=== PATIENT | male | born 1960 | race Caucasian/White ===

== ENCOUNTER 2018-02-08 01:06 | Emergency (ER) | payer MEDICAID ==
[~2018-02-08] VITALS: Ht 182.9 cm; Wt 108.9 kg
[2018-02-08] MEDS ORDERED: ACETAMINOPHEN 500 MG TAB PO ONE ×2 (02:35→02:45)
[2018-02-08] MEDS ORDERED: HYDROcodone-ACET 10/325MG TAB PO ONE (05:00)
[2018-02-08 07:02] VITALS: BP 132/79
== END 2018-02-08 08:04 | disposition home or self-care (01) ==
LOC: ER 01:06 → EDBD 01:06 → ER 08:04
DX: S52.592A Other fractures of lower end of left radius, initial encounter for closed fracture (principal); S52.612A Displaced fracture of left ulna styloid process, initial encounter for closed fracture; S52.591A Other fractures of lower end of right radius, initial encounter for closed fracture; F17.210 Nicotine dependence, cigarettes, uncomplicated; F10.20 Alcohol dependence, uncomplicated; W18.30XA Fall on same level, unspecified, initial encounter; Y93.89 Activity, other specified; Y99.8 Other external cause status; Y92.89 Other specified places as the place of occurrence of the external cause
CPT/HCPCS: 29125; 73110